=== PATIENT | male | born 1980 | race Caucasian/White ===

== ENCOUNTER 2019-01-28 18:37 | Emergency (ER) | payer OTHER ==
[~2019-01-28] VITALS: Ht 182.9 cm; Wt 96.4 kg
[2019-01-28 19:55] VITALS: Ht 182.9 cm; Wt 96.4 kg
[2019-01-28] MEDS ORDERED: PENICILLIN V P500 MG PO (22:50)
[2019-01-28] MEDS ORDERED: TYLENOL W/CODEI1 TAB PO (22:50)
[2019-01-28 23:13] VITALS: BP 127/64
== END 2019-01-28 23:13 | disposition home or self-care (01) ==
LOC: D.ER 18:37
DX: S02.5XXA Fracture of tooth (traumatic), initial encounter for closed fracture (principal); X58.XXXA Exposure to other specified factors, initial encounter; K04.7 Periapical abscess without sinus; F17.210 Nicotine dependence, cigarettes, uncomplicated